=== PATIENT | female | born 1995 | race Two or more races ===

== ENCOUNTER 2022-06-25 13:35 | Inpatient (IN) ==
[2022-06-25] MEDS ORDERED: LIDOCAINE 1% LOCAL 20 ML VIAL INFIL PRN (14:28)
[2022-06-25] MEDS ORDERED: OXYTOCIN 30 UNITS/500 ML BAG IV PRN ×2 (14:28)
--- NOTE | 2022-06-25 14:54 | History & Physical Report ---
Date of Service June 25, 2022 Assessment & Plan (1) Supervision of normal intrauterine in primigravida: Plan: Admit to L&D. Will plan for epidural prior to cervix exam. At that point, will determine need for further IOL measures. Admission and Anticipated Discharge Date Admission Date: June 25, 2022 History of Present Illness Chief Complaint: IOL Primary Care Provider: DA PCP 27yo @ 41 0/7, here for IOL for postdates. +FM, No vaginal bleeding, no leaking fluid. Gestational diabetes. Allergies Allergy/AdvReac Type Severity Reaction Status Date / Time No Known Allergies Allergy Verified 06/24/22 10:00 Home Medications Medication Instructions Recorded Confirmed Type prenat.vits,sam,ude-gclg-[id number] 1 tab PO DAILY 10/31/21 06/24/22 History blood-glucose meter (OneTouch #1 ea 01/17/22 06/24/22 Rx Verio Reflect Meter) acetone (urine) test (Ketone Urine #50 ea 05/28/22 06/24/22 Rx Test strips) blood sugar diagnostic (OneTouch #150 ea 05/28/22 06/24/22 Rx Verio test strips) lancets 33 gauge (OneTouch Delica #150 ea 05/28/22 06/24/22 Rx Lancets) Patient History Family History (Updated 10/31/21 @ 15:09 by Margarita Davis) Mother Diabetes Dyslipidemia Hypertension Social History (Updated 10/31/21 @ 15:10 by Margarita Davis) Smoking Status: Unknown if ever smoked Hx Alcohol Use: No marital status: marital status details: Nadia (30) [phone] Current Living Situation: Spouse Current Living Situation Comment: lives with spouse, current occupational status: employed current occupation: [employer] Feels Safe at Home: Yes Review of Systems All systems reviewed & are unremarkable except as noted in HPI & below Physical Exam Physical Exam: FHT cat 1 [place] irreg SVE - unable to perform exam d/t extreme discomfort. Constitutional: WD/WN, vitals as above Respiratory: normal respiratory effort, lungs clear to auscultation no respiratory distress Cardiovascular: Rate/Rhythm: regular rate and regular rhythm Gastrointestinal (Abdomen): Inspection/Auscultation: abdomen normal to inspection Percussion/Palpation: abdomen soft; abdomen nontender Gravid. No s/s chorio or abruption. Skin: no rashes, warm and dry Psychiatric: A+Ox3, euthymic affect Results & Data Vital Signs (Past 12 Hours) Vital Signs Pulse BP 06/25/22 14:26 113 H 121/73 Coding Level of Care Code None Diagnoses Supervision of normal intrauterine in primigravida Z34.00
[2022-06-25] MEDS: LACTATED RINGER'S 1,000 ML IV PRN ×3 (15:05→21:40)
[2022-06-25 15:11] LABS: Hematocrit (blood only) 34.9 % (37.0-47.0); Hemoglobin 12.1 g/dl (12.0-16.0); Mean Corpuscular Hemoglobin 30.3 pg (25.0-34.0); Mean Corpuscular Hgb Conc 34.7 g/dL (32.0-36.0); Mean Corpuscular Volume 87.3 fL (80.0-100.0); Mean Platelet Volume 12.3 fL (9.4-12.4); Platelet Count 249 K/uL (130-400); RDW Coefficient of Variation 13.3 % (11.5-14.5); RDW Standard Deviation 42.4 fL (36.4-46.3); White Blood Count 8.65 K/ul (4.8-10.8)
[2022-06-25] MEDS ORDERED: ePHEDrine sulfate 50 MG/ML AMP ONE (15:35)
[2022-06-25] MEDS ORDERED: BUPIVACAINE 0.25% PF 30 ML VIAL ONE ×2 (15:36→23:33)
[2022-06-25] MEDS ORDERED: SODIUM CHLORIDE 0.9% PF INJ 10 ML VIAL ONE (15:36)
[2022-06-25] MEDS ORDERED: LIDOCAINE 2%/EPINEPHRINE 1:200,000 20 ML PF ONE (15:36)
[2022-06-25] MEDS ORDERED: fentaNYL 2MCG/ML ROPIVACAINE 1.25MG/ML 100 ML BAG EPI ONE (15:37)
--- NOTE | 2022-06-25 15:48 | Anesthesiology Consultation ---
Date of Service June 25, 2022 Assessment & Plan Chart Review Chart Review: Acceptable Risk for Labor Epidural Consults Requested none ASA ASA2 Proposed Anesthesia Anesthesia Type: Labor Epidural Risk / Benefits Reviewed With: PT / POA / Parent / Guardian, Accepts Plan and Informed Consent Obtained History Height/Weight Height: 5 ft 3 in Weight: 97.976 kg Allergies Allergy/AdvReac Type Severity Reaction Status Date / Time No Known Allergies Allergy Verified 06/25/22 15:20 Medications Home Medications Medication Instructions Recorded Confirmed Last Taken prenat.vits,sam,eeb-xnfl-gxulg 1 tab PO DAILY 10/31/21 06/25/22 06/24/22 22:00 blood-glucose meter (OneTouch #1 ea 01/17/22 06/24/22 Unknown Verio Reflect Meter) acetone (urine) test (Ketone Urine #50 ea 05/28/22 06/24/22 Unknown Test strips) blood sugar diagnostic (OneTouch #150 ea 05/28/22 06/24/22 Unknown Verio test strips) lancets 33 gauge (OneTouch Delica #150 ea 05/28/22 06/24/22 Unknown Lancets) Active Medications Generic Name Dose Route Start Last Admin Trade Name Freq PRN Reason Stop Dose Admin Lactated Ringer's 1,000 mls @ 125 mls/hr 06/25/22 14:28 06/25/22 15:23 Lr IV 06/27/22 14:27 999 mls/hr .Q8H PRN Infusion L&D Protocol Protocol Past Medical History Medical History No known health problems Exercise / Class Metabolic Activity II 4-5 Yardwork/Stairs/Walk up hill Past Family History Family History Mother Diabetes Dyslipidemia Hypertension Past Surgical History Surgical History No history of previous surgery Past Anesthesia History No Hx of Anesthesia Complications and No Family Hx of Anesthesia Complications History of PONV No Hx of PONV and No Hx of Motion Sickness Social History Smoking Status: Never smoker Do You Dip or Chew Tobacco: No Hx Alcohol Use: No Hx Substance Use: No substance use type: does not use Physical Exam Vital Signs Last Vital Signs Temp 99.0 F 06/25/22 14:30 Pulse 85 06/25/22 15:42 Resp 18 06/25/22 14:30 BP 121/73 06/25/22 14:26 Pulse Ox 96 06/25/22 15:42 O2 Del Method Room Air 06/25/22 14:30 ENMT Mouth: no dentition abnormality Thyromental Distance: > or= 3.5 Finger Breadths Mallampati Class: II Neck normal visual inspection Respiratory normal respiratory effort Auscultation: lungs clear to auscultation bilaterally Cardiovascular Rate/Rhythm: regular rate and regular rhythm Testing Laboratory Results 06/25/22 14:49 06/25/22 14:35 POC Glucose 76
[2022-06-25] MEDS ORDERED: NALOXONE HCL 1 MG in SODIUM CHLORIDE 0.9% 1000ML 1,000 ML IV PRN (15:53)
[2022-06-25] MEDS ORDERED: NALOXONE HCL 0.4 MG/1 ML VIAL/CARP IV PRN (15:53)
[2022-06-25] MEDS ORDERED: ONDANSETRON INJ 2 MG/ML 2 ML VIAL IV PRN (15:53)
[2022-06-25] MEDS ORDERED: NALBUPHINE HCL INJ 10 MG/ML AMP IV PRN (15:53)
[2022-06-25] MEDS ORDERED: ePHEDrine sulfate 50 MG/ML AMP IV PRN (15:53)
[2022-06-25] MEDS ORDERED: diphenhydrAMINE 50 MG/ML VIAL IV PRN (15:53)
[2022-06-25] MEDS: fentaNYL citrate PF 100 MCG/2 ML VIAL ONE ×2 (16:20→16:41)
--- NOTE | 2022-06-25 17:24 | Labor Progress Brief Note ---
Date of Service June 25, 2022 Subjective Comfortable with epidural. FHT Cat 1 [place] Q 6 SVE 2-3/80/-2. Exam tolerable with epidural. Will start pitocin, patient agreeable. Will plan for AROM when head more applied in cervix with good contraction pattern. Assessment & Plan Admission and Anticipated Discharge Date Admission Date: June 25, 2022 Results & Data Vital Signs (Past 12 Hours) Vital Signs Temp Pulse Resp BP Pulse Ox O2 Del Method 06/25/22 17:21 96 H 115/83 06/25/22 17:17 95 H 99 06/25/22 17:16 83 112/74 06/25/22 17:12 98 06/25/22 17:12 84 06/25/22 17:12 76 121/76 06/25/22 17:07 97 06/25/22 17:07 82 06/25/22 17:07 88 121/78 06/25/22 17:02 78 98 06/25/22 17:01 78 118/82 06/25/22 16:57 91 H 98 06/25/22 16:56 91 H 122/81 06/25/22 16:52 94 H 124/81 99 06/25/22 16:48 94 H 132/85 06/25/22 16:47 97 H 100 06/25/22 16:42 99 06/25/22 16:42 84 06/25/22 16:42 76 132/78 06/25/22 16:37 90 131/85 99 06/25/22 16:32 86 99 06/25/22 16:30 92 H 129/74 06/25/22 16:29 88 127/70 06/25/22 16:27 90 98 06/25/22 16:26 87 131/73 06/25/22 16:24 90 127/73 06/25/22 16:22 97 H 99 06/25/22 16:23 96 H 129/74 06/25/22 16:21 92 H 138/83 06/25/22 16:19 106 H 154/80 H 06/25/22 16:17 100 06/25/22 16:17 112 H 06/25/22 16:17 114 H 144/102 H 06/25/22 16:15 111 H 133/83 06/25/22 16:13 110 H 141/88 H 06/25/22 16:12 107 H 99 06/25/22 16:07 105 H 98 06/25/22 16:02 102 H 99 06/25/22 16:00 114 H 142/111 H 06/25/22 15:57 97 H 100 06/25/22 15:58 106 H 147/101 H 06/25/22 15:56 106 H 142/98 H 06/25/22 15:52 96 H 99 06/25/22 15:47 92 H 98 06/25/22 15:42 85 96 06/25/22 14:26 113 H 121/73 06/25/22 14:30 37.2 C 18 Room Air Coding Level of Care Code None Diagnoses
--- NOTE | 2022-06-25 20:48 | Labor Progress Brief Note ---
Date of Service June 25, 2022 Subjective Comfortable with epidural. FHT Cat 1 [place] Q 2-3 SVE 3-4/80/-2 AROM clear fluid. Continue pitocin. Assessment & Plan Admission and Anticipated Discharge Date Admission Date: June 25, 2022 Results & Data Vital Signs (Past 12 Hours) Vital Signs Temp Pulse Resp BP Pulse Ox O2 Del Method 06/25/22 19:07 37.0 C 18 06/25/22 20:42 85 98 06/25/22 20:37 90 97 06/25/22 20:30 18 06/25/22 20:30 18 06/25/22 20:32 97 06/25/22 20:32 94 H 06/25/22 20:32 88 111/75 06/25/22 20:27 96 H 97 06/25/22 20:22 89 98 06/25/22 20:17 86 98 06/25/22 20:12 94 H 97 06/25/22 19:15 18 06/25/22 19:15 18 06/25/22 19:30 18 06/25/22 19:30 18 06/25/22 20:00 18 06/25/22 20:00 18 06/25/22 20:07 98 H 97 06/25/22 20:02 84 98 06/25/22 19:57 104 H 98 06/25/22 19:52 91 H 97 06/25/22 19:47 96 H 97 06/25/22 19:42 93 H 98 06/25/22 19:37 87 97 06/25/22 19:32 86 117/73 97 06/25/22 19:27 84 97 06/25/22 19:22 86 98 06/25/22 19:17 84 97 06/25/22 19:12 79 97 06/25/22 19:07 88 97 06/25/22 19:02 94 H 97 06/25/22 18:31 18 06/25/22 18:31 18 06/25/22 18:57 76 98 06/25/22 18:52 86 97 06/25/22 18:47 82 98 06/25/22 18:42 85 98 06/25/22 18:37 92 H 96 06/25/22 18:33 72 127/82 06/25/22 18:32 94 H 98 06/25/22 18:27 87 98 06/25/22 18:22 81 98 06/25/22 18:17 84 98 06/25/22 18:12 84 98 06/25/22 18:07 76 97 06/25/22 18:00 16 06/25/22 18:00 16 06/25/22 18:02 75 98 06/25/22 17:57 83 98 06/25/22 17:50 16 06/25/22 17:50 16 06/25/22 17:45 16 06/25/22 17:45 16 06/25/22 17:52 78 99 06/25/22 17:47 85 97 06/25/22 17:45 18 06/25/22 17:45 37.0 C 77 18 106/71 06/25/22 17:42 98 H 96 06/25/22 17:37 92 H 98 06/25/22 17:32 96 H 97 06/25/22 17:31 84 114/82 06/25/22 17:27 92 H 126/80 98 06/25/22 17:22 84 98 06/25/22 17:21 96 H 115/83 06/25/22 17:17 95 H 99 06/25/22 17:16 83 112/74 06/25/22 17:12 98 06/25/22 17:12 84 06/25/22 17:12 76 121/76 06/25/22 17:07 97 06/25/22 17:07 82 06/25/22 17:07 88 121/78 06/25/22 17:02 78 98 06/25/22 17:01 78 118/82 06/25/22 16:57 91 H 98 06/25/22 16:56 91 H 122/81 06/25/22 16:52 94 H 124/81 99 06/25/22 16:48 94 H 132/85 06/25/22 16:47 97 H 100 06/25/22 16:42 99 06/25/22 16:42 84 06/25/22 16:42 76 132/78 06/25/22 16:37 90 131/85 99 06/25/22 16:32 86 99 06/25/22 16:30 92 H 129/74 06/25/22 16:29 88 127/70 06/25/22 16:27 90 98 06/25/22 16:26 87 131/73 06/25/22 16:24 90 127/73 06/25/22 16:22 97 H 99 06/25/22 16:23 96 H 129/74 06/25/22 16:21 92 H 138/83 06/25/22 16:19 106 H 154/80 H 06/25/22 16:17 100 06/25/22 16:17 112 H 06/25/22 16:17 114 H 144/102 H 06/25/22 16:15 111 H 133/83 06/25/22 16:13 110 H 141/88 H 06/25/22 16:12 107 H 99 06/25/22 16:07 105 H 98 06/25/22 16:02 102 H 99 06/25/22 16:00 114 H 142/111 H 06/25/22 15:57 97 H 100 06/25/22 15:58 106 H 147/101 H 06/25/22 15:56 106 H 142/98 H 06/25/22 15:52 96 H 99 06/25/22 15:47 92 H 98 06/25/22 15:42 85 96 06/25/22 14:26 113 H 121/73 06/25/22 14:30 37.2 C 18 Room Air Coding Level of Care Code None Diagnoses
[2022-06-25] MEDS ORDERED: NURSING L&D Epidural Breakthrough Pain Update ONE (22:24)
[2022-06-25] MEDS ORDERED: fentaNYL citrate PF 100 MCG/2 ML VIAL ONE (23:33)
--- NOTE | 2022-06-25 23:50 | Communication Note ---
Date of Service: June 25, 2022 The patient stated having increasing labor pains. The epidural was bolused with 50mcg of fentanyl and 3mL of 0.25 % bupivacaine. The patient stated having i mproved labor pains. VSS throughout.
[2022-06-26] MEDS: fentaNYL 2MCG/ML ROPIVACAINE 1.25MG/ML 100 ML BAG EPI PRN ×2 (01:51→08:17)
[2022-06-26] MEDS ORDERED: fentaNYL citrate PF 100 MCG/2 ML VIAL ONE ×2 (02:32→08:47)
[2022-06-26] MEDS ORDERED: NURSING L&D Epidural Breakthrough Pain Update ONE (02:47)
--- NOTE | 2022-06-26 02:51 | Communication Note ---
Date of Service: June 26, 2022 The patient stated having increasing labor pains. The epidural was bolused with 4mL of 0.25% bupivacaine and 100 mcg of fentanyl. The patient stated her labor pains had improved. VSS throughout.
[2022-06-26] MEDS ORDERED: LIDOCAINE 2%/EPINEPHRINE 1:200,000 20 ML PF ONE ×2 (04:39→08:47)
--- NOTE | 2022-06-26 04:39 | Labor Progress Brief Note ---
Date of Service June 26, 2022 Subjective Patient very uncomfortable. FHT 140s, mod jose luis. +accels. Rare decel (variable) [place] Q 2 SVE 7-8/100/0, head too low to get IUPC in. She is requesting repeat dosing of epidural. Pain is severe on right side only. Assessment & Plan Admission and Anticipated Discharge Date Admission Date: June 25, 2022 Results & Data Vital Signs (Past 12 Hours) Vital Signs Temp Pulse Resp BP Pulse Ox 06/25/22 19:07 37.0 C 18 06/26/22 04:35 122 H 149/95 H 06/26/22 04:32 113 H 98 06/26/22 04:27 112 H 99 06/26/22 04:22 100 H 99 06/26/22 04:17 93 H 97 06/26/22 04:12 110 H 98 06/26/22 04:07 89 96 06/26/22 04:06 99 H 128/81 06/26/22 04:00 18 06/26/22 04:00 37.0 C 18 06/26/22 04:02 91 H 97 06/26/22 03:57 94 H 98 06/26/22 03:52 86 96 06/26/22 03:50 90 117/70 06/26/22 03:47 84 97 06/26/22 03:42 92 H 97 06/26/22 03:37 87 96 06/26/22 03:35 91 H 129/79 06/26/22 03:30 18 06/26/22 03:30 18 06/26/22 03:32 88 97 06/26/22 03:27 82 97 06/26/22 03:22 83 96 06/26/22 03:20 80 126/76 06/26/22 03:17 89 95 06/26/22 03:18 86 94 06/26/22 03:12 78 96 06/26/22 03:07 75 97 06/26/22 03:00 18 06/26/22 03:00 18 06/26/22 03:05 99 H 122/79 06/26/22 03:02 85 97 06/26/22 02:57 89 96 06/26/22 02:52 100 H 96 06/26/22 02:50 129 H 06/26/22 02:50 115 H 137/105 H 92 03/16/23 02:47 97 06/26/22 02:47 94 H 06/26/22 02:47 83 129/87 06/26/22 02:30 18 06/26/22 02:30 18 06/26/22 02:42 88 97 06/26/22 02:40 90 131/90 06/26/22 02:37 92 H 94 06/26/22 02:35 105 H 127/83 06/26/22 02:32 111 H 99 06/26/22 02:27 92 H 99 06/26/22 02:22 94 H 98 06/26/22 02:20 93 H 126/83 06/26/22 02:17 90 98 06/26/22 02:12 90 97 06/26/22 02:07 94 H 98 06/26/22 02:00 18 06/26/22 02:00 18 06/26/22 02:05 96 H 125/79 06/26/22 02:02 96 H 98 06/26/22 01:30 18 06/26/22 01:30 18 06/26/22 01:57 104 H 98 06/26/22 01:52 104 H 97 06/26/22 01:51 107 H 122/78 06/26/22 01:47 108 H 96 06/26/22 01:42 110 H 97 06/26/22 01:37 96 H 97 06/26/22 01:35 110 H 118/68 06/26/22 01:32 96 H 97 06/26/22 01:31 92 H 93 06/26/22 01:27 101 H 96 06/26/22 00:30 18 06/26/22 00:30 18 06/26/22 01:26 93 H 94 06/26/22 01:00 18 06/26/22 01:00 37.1 C 18 06/26/22 01:22 88 96 06/26/22 01:21 95 H 127/71 06/26/22 01:17 98 H 94 06/26/22 01:18 90 94 06/26/22 01:12 105 H 96 06/26/22 01:07 92 H 96 06/26/22 01:05 96 H 123/81 06/26/22 01:02 91 H 97 06/26/22 00:57 102 H 98 06/26/22 00:52 115 H 98 06/26/22 00:50 109 H 127/91 06/26/22 00:47 118 H 98 06/26/22 00:42 92 H 95 06/26/22 00:41 93 H 93 06/26/22 00:37 84 95 06/26/22 00:34 90 120/70 06/26/22 00:32 86 95 06/26/22 00:28 97 H 92 06/26/22 00:27 90 97 06/26/22 00:22 104 H 97 06/26/22 00:20 93 H 117/63 06/26/22 00:17 95 H 97 06/26/22 00:12 97 H 97 06/26/22 00:00 18 06/26/22 00:00 18 06/26/22 00:07 93 H 97 06/26/22 00:05 95 H 116/62 06/26/22 00:02 96 H 96 06/25/22 23:57 91 H 95 06/25/22 23:52 104 H 96 06/25/22 23:49 101 H 111/62 06/25/22 23:47 93 H 97 06/25/22 23:00 18 06/25/22 23:00 18 06/25/22 23:42 92 H 97 06/25/22 23:43 84 109/56 L 06/25/22 23:30 18 06/25/22 23:30 18 06/25/22 23:37 97 06/25/22 23:37 100 H 06/25/22 23:37 93 H 114/58 L 06/25/22 23:32 91 H 97 06/25/22 23:27 101 H 98 06/25/22 23:22 106 H 98 06/25/22 23:17 100 H 97 06/25/22 23:12 87 94 06/25/22 23:11 88 93 06/25/22 23:07 84 96 06/25/22 23:04 88 110/56 L 06/25/22 23:02 88 97 06/25/22 22:57 84 97 06/25/22 22:52 85 97 06/25/22 22:51 88 108/59 L 06/25/22 22:47 85 97 06/25/22 22:42 97 H 97 06/25/22 22:37 92 H 97 06/25/22 22:30 18 06/25/22 22:30 37.1 C 18 06/25/22 22:35 84 113/63 06/25/22 22:32 91 H 97 06/25/22 22:27 91 H 97 06/25/22 22:22 97 06/25/22 22:22 84 06/25/22 22:22 82 113/59 L 06/25/22 22:17 92 H 97 06/25/22 22:12 90 97 06/25/22 22:07 95 H 97 06/25/22 22:00 18 06/25/22 22:00 18 06/25/22 22:05 92 H 129/81 06/25/22 22:02 86 97 06/25/22 21:57 97 H 98 06/25/22 21:52 90 98 06/25/22 21:50 88 115/79 06/25/22 21:47 95 H 99 06/25/22 21:42 83 97 06/25/22 21:37 98 H 98 06/25/22 21:32 98 06/25/22 21:32 87 06/25/22 21:32 95 H 117/83 06/25/22 21:27 86 98 06/25/22 21:22 89 97 06/25/22 21:00 18 06/25/22 21:00 18 06/25/22 21:17 88 98 06/25/22 21:12 88 98 06/25/22 21:07 89 98 06/25/22 21:02 87 98 06/25/22 20:57 84 98 06/25/22 20:52 84 98 06/25/22 20:47 89 98 06/25/22 20:42 85 98 06/25/22 20:37 90 97 06/25/22 20:30 18 06/25/22 20:30 18 06/25/22 20:32 97 06/25/22 20:32 94 H 06/25/22 20:32 88 111/75 06/25/22 20:27 96 H 97 06/25/22 20:22 89 98 06/25/22 20:17 86 98 06/25/22 20:12 94 H 97 06/25/22 19:15 18 06/25/22 19:15 18 06/25/22 19:30 18 06/25/22 19:30 18 06/25/22 20:00 18 06/25/22 20:00 18 06/25/22 20:07 98 H 97 06/25/22 20:02 84 98 06/25/22 19:57 104 H 98 06/25/22 19:52 91 H 97 06/25/22 19:47 96 H 97 06/25/22 19:42 93 H 98 06/25/22 19:37 87 97 06/25/22 19:32 86 117/73 97 06/25/22 19:27 84 97 06/25/22 19:22 86 98 06/25/22 19:17 84 97 06/25/22 19:12 79 97 06/25/22 19:07 88 97 06/25/22 19:02 94 H 97 06/25/22 18:31 18 06/25/22 18:31 18 06/25/22 18:57 76 98 06/25/22 18:52 86 97 06/25/22 18:47 82 98 06/25/22 18:42 85 98 06/25/22 18:37 92 H 96 06/25/22 18:33 72 127/82 06/25/22 18:32 94 H 98 06/25/22 18:27 87 98 06/25/22 18:22 81 98 06/25/22 18:17 84 98 06/25/22 18:12 84 98 06/25/22 18:07 76 97 06/25/22 18:00 16 06/25/22 18:00 16 06/25/22 18:02 75 98 06/25/22 17:57 83 98 06/25/22 17:50 16 06/25/22 17:50 16 06/25/22 17:45 16 06/25/22 17:45 16 06/25/22 17:52 78 99 06/25/22 17:47 85 97 06/25/22 17:45 18 06/25/22 17:45 37.0 C 77 18 106/71 06/25/22 17:42 98 H 96 06/25/22 17:37 92 H 98 06/25/22 17:32 96 H 97 06/25/22 17:31 84 114/82 06/25/22 17:27 92 H 126/80 98 06/25/22 17:22 84 98 06/25/22 17:21 96 H 115/83 06/25/22 17:17 95 H 99 06/25/22 17:16 83 112/74 06/25/22 17:12 98 06/25/22 17:12 84 06/25/22 17:12 76 121/76 06/25/22 17:07 97 06/25/22 17:07 82 06/25/22 17:07 88 121/78 06/25/22 17:02 78 98 06/25/22 17:01 78 118/82 06/25/22 16:57 91 H 98 06/25/22 16:56 91 H 122/81 06/25/22 16:52 94 H 124/81 99 06/25/22 16:48 94 H 132/85 06/25/22 16:47 97 H 100 06/25/22 16:42 99 06/25/22 16:42 84 06/25/22 16:42 76 132/78 Coding Level of Care Code None Diagnoses
--- NOTE | 2022-06-26 04:53 | Communication Note ---
Date of Service: June 26, 2022 The patient stated having increasing labor pains. The epidural was bolused with 4mL of lido 2% with epi 1:200K. The patient stated her labor pains had improved. VSS throughout.
[2022-06-26] MEDS: LACTATED RINGER'S 1,000 ML IV PRN (05:43)
[2022-06-26] MEDS ORDERED: GENTAMICIN CONSULT ACTIVE PRN (08:38)
--- NOTE | 2022-06-26 08:51 | Labor Progress Brief Note ---
Date of Service June 26, 2022 Subjective Patient seen at approx 0730, comfortable. FHT occ variable decels, not recurrent. [place] Q2 SVE anterior lip, +1 station. Elevated temp, maternal tachycardia - will diagnose with chorioamnionitis, start amp/gent - patient agreeable. Assessment & Plan Admission and Anticipated Discharge Date Admission Date: June 25, 2022 Results & Data Vital Signs (Past 12 Hours) Vital Signs Temp Pulse Resp BP Pulse Ox 06/26/22 08:42 107 H 99 06/26/22 08:37 99 H 97 06/26/22 08:35 96 H 116/75 06/26/22 08:32 101 H 97 06/26/22 08:27 113 H 98 06/26/22 08:22 110 H 98 06/26/22 08:20 104 H 135/81 06/26/22 08:17 110 H 97 06/26/22 08:12 114 H 98 06/26/22 08:07 119 H 97 06/26/22 08:06 107 H 133/91 06/26/22 08:02 112 H 98 06/26/22 08:00 100 H 91 06/26/22 07:57 117 H 99 06/26/22 07:52 114 H 97 06/26/22 07:50 112 H 142/89 H 06/26/22 07:47 114 H 99 06/26/22 07:42 112 H 99 06/26/22 07:37 108 H 98 06/26/22 07:35 106 H 142/89 H 06/26/22 07:32 110 H 96 06/26/22 07:27 119 H 96 06/26/22 07:22 120 H 97 06/26/22 07:20 111 H 121/76 06/26/22 07:17 117 H 96 06/26/22 07:15 116 H 94 06/26/22 07:12 120 H 96 06/26/22 07:07 38.7 C H 113 H 16 119/68 95 06/26/22 07:04 115 H 105/57 L 06/26/22 07:02 108 H 96 06/26/22 06:57 107 H 96 06/26/22 06:52 100 H 96 06/26/22 06:51 99 H 102/57 L 06/26/22 06:49 99 H 93 06/26/22 06:47 101 H 95 06/26/22 06:42 97 H 95 06/26/22 06:37 96 06/26/22 06:37 94 H 06/26/22 06:37 93 H 94 06/26/22 06:35 95 H 97/54 L 06/26/22 06:32 88 96 06/26/22 06:30 101 H 18 93 06/26/22 06:27 90 95 06/26/22 06:24 88 94 06/26/22 06:22 89 96 06/26/22 06:19 93 H 06/26/22 06:19 90 88/53 L 94 06/26/22 06:17 91 H 95 06/26/22 06:00 18 06/26/22 06:00 18 06/26/22 06:12 89 96 06/26/22 06:11 92 H 92 06/26/22 06:07 83 96 06/26/22 06:06 89 84/46 L 06/26/22 06:02 86 97 06/26/22 05:57 86 97 06/26/22 05:52 87 98 06/26/22 05:50 85 81/49 L 06/26/22 05:47 87 99 06/26/22 05:42 105 H 100 06/26/22 05:30 18 06/26/22 05:30 18 06/26/22 05:37 101 H 99 06/26/22 05:35 102 H 92/51 L 06/26/22 05:32 100 H 98 06/26/22 05:27 99 H 98 06/26/22 05:00 18 06/26/22 05:00 18 06/26/22 05:22 96 H 98 06/26/22 05:20 108 H 107/65 06/26/22 05:17 106 H 96 06/26/22 05:12 108 H 97 06/26/22 05:07 109 H 98 06/26/22 05:05 115 H 118/69 06/26/22 05:02 107 H 98 06/26/22 04:30 18 06/26/22 04:30 18 06/26/22 04:57 102 H 97 06/26/22 04:52 111 H 98 06/26/22 04:50 103 H 128/78 06/26/22 04:40 37.1 C 06/26/22 04:47 97 H 137/84 98 06/26/22 04:42 91 H 97 06/26/22 04:37 105 H 98 06/26/22 04:35 122 H 149/95 H 06/26/22 04:32 113 H 98 06/26/22 04:27 112 H 99 06/26/22 04:22 100 H 99 06/26/22 04:17 93 H 97 06/26/22 04:12 110 H 98 06/26/22 04:07 89 96 06/26/22 04:06 99 H 128/81 06/26/22 04:00 18 06/26/22 04:00 37.0 C 18 06/26/22 04:02 91 H 97 06/26/22 03:57 94 H 98 06/26/22 03:52 86 96 06/26/22 03:50 90 117/70 06/26/22 03:47 84 97 06/26/22 03:42 92 H 97 06/26/22 03:37 87 96 06/26/22 03:35 91 H 129/79 06/26/22 03:30 18 06/26/22 03:30 18 06/26/22 03:32 88 97 06/26/22 03:27 82 97 06/26/22 03:22 83 96 06/26/22 03:20 80 126/76 06/26/22 03:17 89 95 06/26/22 03:18 86 94 06/26/22 03:12 78 96 06/26/22 03:07 75 97 06/26/22 03:00 18 06/26/22 03:00 18 06/26/22 03:05 99 H 122/79 06/26/22 03:02 85 97 06/26/22 02:57 89 96 06/26/22 02:52 100 H 96 06/26/22 02:50 129 H 06/26/22 02:50 115 H 137/105 H 92 06/26/22 02:47 97 06/26/22 02:47 94 H 06/26/22 02:47 83 129/87 06/26/22 02:30 18 06/26/22 02:30 18 06/26/22 02:42 88 97 06/26/22 02:40 90 131/90 06/26/22 02:37 92 H 94 06/26/22 02:35 105 H 127/83 06/26/22 02:32 111 H 99 06/26/22 02:27 92 H 99 06/26/22 02:22 94 H 98 06/26/22 02:20 93 H 126/83 06/26/22 02:17 90 98 06/26/22 02:12 90 97 06/26/22 02:07 94 H 98 06/26/22 02:00 18 06/26/22 02:00 18 06/26/22 02:05 96 H 125/79 06/26/22 02:02 96 H 98 06/26/22 01:30 18 06/26/22 01:30 18 06/26/22 01:57 104 H 98 06/26/22 01:52 104 H 97 06/26/22 01:51 107 H 122/78 06/26/22 01:47 108 H 96 06/26/22 01:42 110 H 97 06/26/22 01:37 96 H 97 06/26/22 01:35 110 H 118/68 06/26/22 01:32 96 H 97 06/26/22 01:31 92 H 93 06/26/22 01:27 101 H 96 06/26/22 00:30 18 06/26/22 00:30 18 06/26/22 01:26 93 H 94 06/26/22 01:00 18 06/26/22 01:00 37.1 C 18 06/26/22 01:22 88 96 06/26/22 01:21 95 H 127/71 06/26/22 01:17 98 H 94 06/26/22 01:18 90 94 06/26/22 01:12 105 H 96 06/26/22 01:07 92 H 96 06/26/22 01:05 96 H 123/81 06/26/22 01:02 91 H 97 06/26/22 00:57 102 H 98 06/26/22 00:52 115 H 98 06/26/22 00:50 109 H 127/91 06/26/22 00:47 118 H 98 06/26/22 00:42 92 H 95 06/26/22 00:41 93 H 93 06/26/22 00:37 84 95 06/26/22 00:34 90 120/70 06/26/22 00:32 86 95 06/26/22 00:28 97 H 92 06/26/22 00:27 90 97 06/26/22 00:22 104 H 97 06/26/22 00:20 93 H 117/63 06/26/22 00:17 95 H 97 06/26/22 00:12 97 H 97 06/26/22 00:00 18 06/26/22 00:00 18 06/26/22 00:07 93 H 97 06/26/22 00:05 95 H 116/62 06/26/22 00:02 96 H 96 06/25/22 23:57 91 H 95 06/25/22 23:52 104 H 96 06/25/22 23:49 101 H 111/62 06/25/22 23:47 93 H 97 06/25/22 23:00 18 06/25/22 23:00 18 06/25/22 23:42 92 H 97 06/25/22 23:43 84 109/56 L 06/25/22 23:30 18 06/25/22 23:30 18 06/25/22 23:37 97 06/25/22 23:37 100 H 06/25/22 23:37 93 H 114/58 L 06/25/22 23:32 91 H 97 06/25/22 23:27 101 H 98 06/25/22 23:22 106 H 98 06/25/22 23:17 100 H 97 06/25/22 23:12 87 94 06/25/22 23:11 88 93 06/25/22 23:07 84 96 06/25/22 23:04 88 110/56 L 06/25/22 23:02 88 97 06/25/22 22:57 84 97 06/25/22 22:52 85 97 06/25/22 22:51 88 108/59 L 06/25/22 22:47 85 97 06/25/22 22:42 97 H 97 06/25/22 22:37 92 H 97 06/25/22 22:30 18 06/25/22 22:30 37.1 C 18 06/25/22 22:35 84 113/63 06/25/22 22:32 91 H 97 06/25/22 22:27 91 H 97 06/25/22 22:22 97 03/15/23 22:22 84 06/25/22 22:22 82 113/59 L 06/25/22 22:17 92 H 97 06/25/22 22:12 90 97 06/25/22 22:07 95 H 97 06/25/22 22:00 18 06/25/22 22:00 18 06/25/22 22:05 92 H 129/81 06/25/22 22:02 86 97 06/25/22 21:57 97 H 98 06/25/22 21:52 90 98 06/25/22 21:50 88 115/79 06/25/22 21:47 95 H 99 06/25/22 21:42 83 97 06/25/22 21:37 98 H 98 06/25/22 21:32 98 06/25/22 21:32 87 06/25/22 21:32 95 H 117/83 06/25/22 21:27 86 98 06/25/22 21:22 89 97 06/25/22 21:00 18 06/25/22 21:00 18 06/25/22 21:17 88 98 06/25/22 21:12 88 98 06/25/22 21:07 89 98 06/25/22 21:02 87 98 06/25/22 20:57 84 98 06/25/22 20:52 84 98 Coding Level of Care Code None Diagnoses
--- NOTE | 2022-06-26 08:56 | Communication Note ---
Date of Service: June 26, 2022 pt c/o pain diffusely, but cannot feel/move her legs. I d/w patient that epidurals do not take away all the pain and she will have to feel pressure to deliver the baby. also, repeated dosing close to delivery can weaken the baby (fentanyl). I dosed the patient with 100 mcg fentanyl, 3 ml 0.5% ropivicaine and 2 mL of bupivicaine. vss
[2022-06-26] MEDS: AMPICILLIN 2,000 MG in SODIUM CHLOR 0.9% AD-VAN 100 ML IV SCH ×3 (09:09→21:12)
[2022-06-26] MEDS ORDERED: GENTAMICIN SULFATE IV SCH (09:30)
[2022-06-26] MEDS ORDERED: DEXTROSE 5% IV SCH (09:30)
--- NOTE | 2022-06-26 09:58 | Pharmacy Report ---
Pharmacy Progress Note - Date of Service June 26, 2022 - Progress Note Assessment 27 year old F started today on Gentamicin extended interval dosing intra- for treatment of possible Chorioamnionitis. Patient with positive fevers this morning. Plan Gentamicin * Gentamicin IV 5 mg/kg Q24h (using actual body weight per [facility] nomogram protocol) was started today assuming CrCl greater than 60 ml/min in this young patient with no known prior history of renal dysfunction. * Will obtain a serum creat tomorrow AM prior to dose and re-assess if dosing needs to be changed. * If Gentamicin continues beyond 72 hrs, then will obtain a level to ensure dosing interval is appropriate. Pharmacy will continue to follow and will adjust dose/frequency as necessary. Thank you.
[2022-06-26] MEDS ORDERED: IBUPROFEN 600 MG TAB PO PRN (13:59)
[2022-06-26] MEDS ORDERED: HYDROCORTISONE ACETATE 25 MG SUPP PR PRN (13:59)
[2022-06-26] MEDS ORDERED: ACETAMINOPHEN 325 MG TAB PO PRN (13:59)
[2022-06-26] MEDS ORDERED: BENZOCAINE 20% AER SPR 82.5 GM CAN EXT PRN (13:59)
[2022-06-26] MEDS ORDERED: DIPHTHERIA/TETANUS/PERTUSSIS 0.5mL SYR/VIAL (Age 7+yrs) IM ONE (13:59)
[2022-06-26] MEDS ORDERED: bisacodyL 10 MG SUPP PR PRN (13:59)
[2022-06-26] MEDS ORDERED: oxyCODONE/ACETAMINOPHEN 5mg/325mg TAB PO PRN (13:59)
[2022-06-26] MEDS ORDERED: OXYTOCIN 30 UNITS/500 ML BAG IV PRN (13:59)
--- NOTE | 2022-06-26 14:38 | Anesthesia Procedure Note ---
Date of Service June 26, 2022 Anesthesia Post Epidural Note Vital Signs Vital Signs: Temp Pulse Resp BP Pulse Ox O2 Del Method 37.3 C 104 H 20 122/76 97 Room Air 06/26/22 11:02 06/26/22 14:25 06/26/22 11:02 06/26/22 14:25 06/26/22 13:43 06/25/22 14:30 Pain Intensity Abdomen: Pain Intensity: 8 Notes Mental Status: alert / awake / arousable and participated in evaluation Nausea / Vomiting: adequately controlled Pain: adequately controlled Airway Patency, RR, SpO2: stable & adequate BP & HR: stable & adequate Hydration State: stable & adequate Neuraxial Anesthesia: was administered and sensory block is resolving Anesthetic Complications: no major complications apparent and Pt Satisfied with anesthetic care Epidural: Removed without complications and With tip intact
--- NOTE | 2022-06-26 14:51 | Delivery Summary ---
Vaginal Delivery Summary Date of Service June 26, 2022 Vaginal Delivery Summary and 2nd Degree LAC Patient is a 27-year-old G1, P0 female who was admitted for induction of labor because of postterm . She progressed to full dilation with effective epidural analgesia. She pushed over intact perineum for delivery of a viable female infant. After the head was delivered there was a nuchal cord which needed to be clamped and cut prior to delivering the rest of the . The rest of the infant delivered easily and was placed on mother's abdomen for further attention and drying. There was poor respiratory effort and the infant was transferred to the baby bed at which point she became more vigorous and was crying. The placenta was then expressed intact with a three-vessel cord. bleeding was controlled with dilute Pitocin and fundal massage. A second-degree perineal laceration was repaired with 3-0 chromic in the usual fashion. Estimated blood loss 200 cc. Mother and infant were then doing well. [facility] [place] Delivery Type Details: and 2nd Degree LAC
[2022-06-26] MEDS: DOCUSATE SODIUM 100 MG CAP PO SCH (21:03)
[2022-06-27 06:45] LABS: Hematocrit (blood only) 25.6 % (37.0-47.0); Hemoglobin 8.8 g/dl (12.0-16.0); Mean Corpuscular Hemoglobin 30.3 pg (25.0-34.0); Mean Corpuscular Hgb Conc 34.4 g/dL (32.0-36.0); Mean Corpuscular Volume 88.3 fL (80.0-100.0); Mean Platelet Volume 12.2 fL (9.4-12.4); Platelet Count 186 K/uL (130-400); RDW Coefficient of Variation 13.2 % (11.5-14.5); RDW Standard Deviation 43.2 fL (36.4-46.3); White Blood Count 17.75 K/ul (4.8-10.8)
--- NOTE | 2022-06-27 07:42 | Obstetrical Progress Note ---
Date of Service June 27, 2022 Assessment & Plan (1) Encounter for care and examination after delivery: urinary retention requiring straight cath x 2 - Lord overnight now removed but no void yet continue current care plan Subjective Ambulation: ambulating normally Voiding: voiding difficulty Passing Gas:: Yes Diet Tolerance:: regular diet Lochia:: Moderate Feeding Type:: bottle feeding had to be straight cathed X 2 with 750cc of urine- had lord catheter overnight inserted at about 2100. catheter removed at 0600 today. no void yet Review of Systems All systems reviewed & are unremarkable except as noted in HPI & below Physical Exam Constitutional WD/WN, vitals as above Psychiatric A+Ox3, euthymic affect Genitourinary OB Exam Abdomen: + fundal height Fundus: + firm and + relation to umbilicus (at U) Results & Data Vital Signs (Past 12 Hours) Vital Signs Temp Pulse Resp BP BP Pulse Ox O2 Del Method 06/27/22 03:22 98.2 F 95 H 16 111/71 98 Room Air 06/26/22 23:07 98.1 F 92 H 20 124/82 96 Room Air
[2022-06-27 08:27] LABS: Creatinine Clr Calc Pharmacy 172.9 ml/min; Est GFR (African American) 148.8 ml/min; Est GFR (Non-African American) 128.4 ml/min
[2022-06-27] MEDS: DOCUSATE SODIUM 100 MG CAP PO SCH ×2 (09:45→19:51)
[2022-06-27] MEDS: PRENATAL VITAMIN 1 TAB PO SCH (09:45)
[2022-06-27] MEDS ORDERED: bisacodyL 5 MG TABEC PO SCH (20:00)
[2022-06-28 07:29] LABS: Hematocrit (blood only) 24.2 % (37.0-47.0); Hemoglobin 8.4 g/dl (12.0-16.0)
[2022-06-28 07:36] LABS: Creatinine Clr Calc Pharmacy 186.8 ml/min; Est GFR (African American) > 150.0 ml/min; Est GFR (Non-African American) 131.7 ml/min
[2022-06-28] MEDS: PRENATAL VITAMIN 1 TAB PO SCH (08:35)
[2022-06-28] MEDS: DOCUSATE SODIUM 100 MG CAP PO SCH (08:36)
--- NOTE | 2022-06-28 08:50 | Obstetrical Progress Note ---
Date of Service June 28, 2022 Assessment & Plan (1) Encounter for care and examination after delivery: Plan Plan d/c today. Instructions given. f/u in 6 weeks in the office. Day #:: 2 Subjective Ambulation: ambulating normally Voiding: no voiding problems Diet Tolerance:: regular diet Lochia:: Small Feeding Type:: breast feeding Was able to void after removal of her lord yesterday with no issues. Physical Exam Constitutional WD/WN, vitals as above Respiratory normal respiratory effort, lungs clear to auscultation Cardiovascular RRR, no murmur, no edema Extremities: + edema (tr-+1); no calf tenderness Gastrointestinal (Abdomen) soft, nt, nd, ff/nt at u
== END 2022-06-28 13:05 | disposition home or self-care (01) | DRG 807 ==
LOC: 4S1 14:15 → 4E2 06-26 17:04